=== PATIENT | female | born 1955 ===

== ENCOUNTER 2017-02-04 23:19 | Inpatient (IN) | payer MEDICAID ==
[2017-02-04 23:19] VITALS: BMI 33.2
--- NOTE | 2017-02-04 23:43 | C.PDOC ---
History Of Present Illness 61F c/o constant right sided abd pain for the last 3 days. improved somewhat w motrin. no exac fx. +n/v x3. no diarrhea or dysuria. hx of diverticulitis but says this feels different. Time Seen by Provider: 02/04/17 23:35 Chief Complaint (Nursing): Abdominal Pain Past Medical History Vital Signs: Last Vital Signs Temp 97.7 F 02/04/17 23:23 Pulse 85 02/04/17 23:23 Resp 16 02/04/17 23:23 BP 124/85 02/04/17 23:23 Pulse Ox 98 02/05/17 01:59 - Medical History PMH: Diverticulitis (2 years ago), Fractures (right patella hardware), HTN, Hypothyroidism, Chronic Kidney Disease (renal mass) - [facility] Procedures EXCISION OF DESCENDING COLON, ENDO, DIAGN (06/06/16) Family History: States: Other Other Family History: nc - Social History Hx Alcohol Use: No Hx Substance Use: No - Immunization History Hx Tetanus Toxoid Vaccination: Yes Hx Influenza Vaccination: No Hx Pneumococcal Vaccination: No Review Of Systems Except As Marked, All Systems Reviewed And Found Negative. Constitutional: Negative for: Fever, Chills Cardiovascular: Negative for: Chest Pain Respiratory: Negative for: Cough, Shortness of Breath Gastrointestinal: Positive for: Nausea, Vomiting, Abdominal Pain. Negative for : Diarrhea, Melena, Hematochezia Genitourinary: Negative for: Dysuria, Frequency Physical Exam - Physical Exam Appears: Well, Non-toxic, No Acute Distress Skin: Warm, Dry Head: Atraumatic Eye(s): bilateral: PERRL Oral Mucosa: Moist Lips: No Swelling Neck: Normal ROM Cardiovascular: Rhythm Regular Respiratory: No Decreased Breath Sounds, No Accessory Muscle Use, No Rales, No Rhonchi, No Wheezing Gastrointestinal/Abdominal: Soft, Tenderness (diffuse mainly LLQ), No Distention , No Guarding, No Rebound Extremity: No Swelling Neurological/Psych: Oriented x3, Other (no focla deficits) ED Course And Treatment - Laboratory Results Result Diagrams: 02/04/17 23:52 02/04/17 23:52 O2 Sat by Pulse Oximetry: 98 Medical Decision Making Medical Decision Making: EXAM: CT Abdomen and Pelvis With Intravenous Contrast CLINICAL HISTORY: 61 years old, female; Pain; Abdominal pain; Generalized TECHNIQUE: Axial computed tomography images of the abdomen and pelvis with intravenous contrast. This CT exam was performed using one or more of the following dose reduction techniques : automated exposure control, adjustment of the mA and/or kV according to patient size, and/ or use of iterative reconstruction technique. Coronal and sagittal reformatted images were created and reviewed. CONTRAST: 100 mL of VISIPAQUE administered intravenously. EXAM DATE/TIME: 02/04/2017 11:47 PM COMPARISON: CT - ABD PELVIS PO IV CON 11/14/2016 12:11:38 PM FINDINGS: Lower thorax: Heart size is normal. There is minimal atelectasis at the lung bases ABDOMEN: Liver: There is fatty infiltration of the liver. Gallbladder and bile ducts: Gallbladder is distended. There may be stones in the gallbladder. Pancreas: Pancreas is mildly atrophic. Spleen: Spleen is unremarkable. Adrenals: unremarkable Kidneys and ureters: There is a 1.2 cm right upper pole renal lesion not a simple cyst by CT criteria. Left kidney is unremarkable. There is no pelvocaliectasis or ureterectasis. Stomach and bowel: Stomach is almost empty. Rotation is normal. There are distended small bowel loops in the left lower quadrant with air-fluid levels. There is no obstruction. Terminal ileum is unremarkable.Appendix is not visualized.There is no pericecal inflammation. There is scattered diverticulosis Appendix: See stomach and bowel PELVIS: Bladder: unremarkable Reproductive: Uterus is absent. There are no adnexal masses. ABDOMEN and PELVIS: Intraperitoneal space: There is no significant fluid. There is no free air. Bones/joints: There are postsurgical changes of spinal fusion L5/S1. There is a cage in the L5-S1 disc space. There is mild compression deformity of L4. There is compression fracture of T11. Soft tissues: There granulomas in the left buttock Vasculature: Vascular structures are unremarkable. Lymph nodes: unremarkable IMPRESSION: Ileus, no obstruction; diverticulosis without CT findings of diverticulitis; fatty liver; 1.2 cm low attenuation right renal mass, unchanged Additional findings as described above Disposition - Disposition Disposition: HOSPITALIZED Disposition Time: 02:19 Condition: STABLE - Clinical Impression Clinical Impression: Abdominal pain, Vomiting, Nausea
[2017-02-04] MEDS ORDERED: Sodium Chloride 0.9% 1,000 ML IV ONE (23:48)
[2017-02-04 23:55] LABS: BASO % 1.2 % (0.0-2.0); EOS % 0.3 % (0.0-4.0); HEMATOCRIT 44.3 % (34.0-47.0); LYMPH # 1.3 K/uL (1.0-4.3); LYMPH % 41.7 % (20.0-40.0); MEAN CELL VOLUME 89.7 fL (81.0-99.0); MEAN CORPUSCULAR HEMOGLOBIN 30.3 pg (27.0-31.0); MEAN CORPUSCULAR HGB CONC 33.8 g/dL (33.0-37.0); MEAN PLATELET VOLUME 9.2 fL (7.2-11.7); MONO # 0.5 K/uL (0.0-0.8); NRBC % 0.1 % (0.0-2.0); RED CELL DISTRIBUTION WIDTH 13.5 % (11.5-14.5)
[2017-02-04] MEDS ORDERED: Sodium Chloride 0.9% 1,000 ML ONE (23:56)
[2017-02-05 00:03] LABS: CHLORIDE 96 mmol/L (98-107); SODIUM 137 mmol/L (132-148)
[2017-02-05 00:05] LABS: BILIRUBIN,TOTAL 1.1 mg/dL (0.2-1.3); CARBON DIOXIDE 30 mmol/L (22-30); GFR AFRICAN-AMERICAN > 60
[2017-02-05 00:06] LABS: ALB/GLOB RATIO 1.2 (1.0-2.1); ALKALINE PHOSPHATASE 51 U/L (38-126); ALT/SGPT 35 U/L (9-52); AST/SGOT 47 U/L (14-36); BLOOD UREA NITROGEN 16 mg/dL (7-17); CALCIUM 8.6 mg/dl (8.6-10.4); GLUCOSE,RANDOM 102 mg/dL (65-105); TOTAL PROTEIN 7.9 g/dL (6.3-8.3)
[2017-02-05 00:13] LABS: POTASSIUM 4.9 mmol/L (3.6-5.2)
[2017-02-05 00:19] LABS: RBC URINE 3 /hpf (0-3); URINE BACTERIA MANY (<OCC); URINE BILIRUBIN NEGATIVE (NEGATIVE); URINE BLOOD NEGATIVE (NEGATIVE); URINE COLOR Yellow (YELLOW); URINE GLUCOSE (UA) NORMAL (Normal); URINE KETONE 1+ mg/dL (NEGATIVE); URINE LEUKOCYTE ESTERASE NEG Leu/uL (Negative); URINE PROTEIN NEGATIVE (NEGATIVE); URINE UROBILINOGEN NORMAL mg/dL (0.2-1.0); WBC URINE 4 /hpf (0-5)
[2017-02-05] MEDS ORDERED: Iodixanol 320 MG/ML 100 ML BOTTLE IV ONE (00:32)
--- NOTE | 2017-02-05 01:58 | CT ---
EXAM: CT Abdomen and Pelvis With Intravenous Contrast CLINICAL HISTORY: 61 years old, female; Pain; Abdominal pain; Generalized TECHNIQUE: Axial computed tomography images of the abdomen and pelvis with intravenous contrast. This CT exam was performed using one or more of the following dose reduction techniques: automated exposure control, adjustment of the mA and/or kV according to patient size, and/or use of iterative reconstruction technique. Coronal and sagittal reformatted images were created and reviewed. CONTRAST: 100 mL of VISIPAQUE administered intravenously. EXAM DATE/TIME: 02/04/2017 11:47 PM COMPARISON: CT - ABD PELVIS PO IV CON 11/14/2016 12:11:38 PM FINDINGS: Lower thorax: Heart size is normal. There is minimal atelectasis at the lung bases ABDOMEN: Liver: There is fatty infiltration of the liver. Gallbladder and bile ducts: Gallbladder is distended. There may be stones in the gallbladder. Pancreas: Pancreas is mildly atrophic. Spleen: Spleen is unremarkable. Adrenals: unremarkable Kidneys and ureters: There is a 1.2 cm right upper pole renal lesion not a simple cyst by CT criteria. Left kidney is unremarkable. There is no pelvocaliectasis or ureterectasis. Stomach and bowel: Stomach is almost empty. Rotation is normal. There are distended small bowel loops in the left lower quadrant with air-fluid levels. There is no obstruction. Terminal ileum is unremarkable.Appendix is not visualized.There is no pericecal inflammation. There is scattered diverticulosis Appendix: See stomach and bowel PELVIS: Bladder: unremarkable Reproductive: Uterus is absent. There are no adnexal masses. ABDOMEN and PELVIS: Intraperitoneal space: There is no significant fluid. There is no free air. Bones/joints: There are postsurgical changes of spinal fusion L5/S1. There is a cage in the L5-S1 disc space. There is mild compression deformity of L4. There is compression fracture of T11. Soft tissues: There granulomas in the left buttock Vasculature: Vascular structures are unremarkable. Lymph nodes: unremarkable IMPRESSION: Ileus, no obstruction; diverticulosis without CT findings of diverticulitis; fatty liver; 1.2 cm low attenuation right renal mass, unchanged Additional findings as described above.
[2017-02-05] MEDS ORDERED: DiphenhydrAMINE 50 mg/ml Inj IVP STA (02:21)
[2017-02-05] MEDS ORDERED: Sodium Chloride 0.9% 1,000 ML ONE (02:25)
[2017-02-05] MEDS ORDERED: DiphenhydrAMINE 50 mg/ml Inj ONE (02:25)
[2017-02-05] MEDS: Sodium Chloride 0.9% 1,000 ML IV SCH (02:29)
[2017-02-05] MEDS ORDERED: Dextrose 5%/0.9% NS 1,000 ML IV ONE (04:20)
[2017-02-05] MEDS: Dextrose 5%/0.9% NS 1,000 ML IV SCH ×2 (04:21→18:01)
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
[2017-02-05] MEDS: Levothyroxine 50 MCG TAB PO SCH (10:57)
[2017-02-05] MEDS: Enoxaparin 40 mg Syringe SC SCH (10:57)
--- NOTE | 2017-02-05 11:11 | NM ---
PROCEDURE: Nuclear Medicine Hepatobiliary Scan HISTORY: biliary colic COMPARISON: February 05, 2017. CT abdomen and pelvis TECHNIQUE: 5.1 mCi of technetium 99m Mebrofenin was administered intravenously. Planar images of the abdomen were obtained at 5 min intervals to 60 mins. Delayed images were also obtained. FINDINGS: LIVER: Timely and homogenous uptake. COMMON BILE DUCT: identified at 10 mins. GALLBLADDER: identified at 25 mins. SMALL BOWEL: Identified at 15 mins. IMPRESSION: Normal Hepatobiliary Scan. The cystic duct is patent.
[2017-02-05 14:57] LABS: CARCINOEMBRYONIC ANTIGEN 1.3 ng/mL (0-3.0)
[2017-02-05 15:01] LABS: CA 19-9 5.4 U/mL (0-37)
--- NOTE | 2017-02-05 15:49 | CON ---
DATE: 02/05/[address] Les Plummer to Dr. Canelo Matias. I was called for GI consultation by the admitting medical team as well as ER staff. The patient is s een and fully examined on 02/05/2017. Case discussed with the staff at length on the floor. This is a 61-year-old female who was admitted to the hospital through the Emergency Room with a main complaint of severe persistent mid epigastric and right upper quadrant pain, radiates to the right fl ank area as well as the right shoulder area for the last 3-4 days prior to her admission with episode s of nausea and vomiting with dyspepsia, but no chills or fever. No active bleeding. No reported shortness of breath or chest pain or palpitation. PAST MEDICAL HISTORY: 1. Diverticulosis with episodes of diverticulitis. 2. Hypertension. 3. Renal mass lesion diagnosed before. 4. Known history of hypothyroidism. 5. Right patellar fracture before. The patient's last colonoscopy apparently done 05/19/2016, details are not available right now. FAMILY HISTORY: Unrelated to specific GI disorders. SOCIAL HISTORY: No known history of cigarette smoking or alcohol intake. CURRENT MEDICATIONS: Lists were reviewed. ALLERGY TO MEDICATION: Unclear. After being admitted to the hospital, the patient was found to have normal hemoglobin and hematocrit with low white cells to 3.0 and normal SMA-7. Abdominal and pelvic CAT scan, report is seen with an ileus, but no evidence of obstruction with evid ence of diverticulosis, but no diverticulitis, with right renal mass, unchanged. PHYSICAL EXAMINATION: GENERAL: A 61-year-old female, awake, alert, oriented, complaining of right-sided abdominal pain. HEENT: Showed dry oral mucoid membrane. Nonicteric sclerae. LUNGS: Few scattered crepitation. Decreased air entry at bases. HEART: Positive S1 and S2. LYMPH NODES: No lymphadenitis or lymphadenopathy. VITAL SIGNS: The patient is afebrile with pulse of 82, respiratory rate 20-22 with blood pressure 13 0/82. EXTREMITIES: Without significant edema, clubbing or cyanosis. NEUROLOGIC: No reported new neurological deficit, sensory or motor. It has to be mentioned that the abdominal x-ray showed mid epigastric as well as right upper quadrant tenderness. Bowel sounds are hypoactive. No mass or organomegaly. IMPRESSION: 1. To rule out cholelithiasis with early stage of cholecystitis. 2. Right renal mass of unclear etiology. 3. Known history of diverticulosis. 4. Known history of hypertension, hyperlipidemia. SUGGESTION: 1. Continue current management. 2. IV antibiotics. 3. MRCP. 4. Surgical evaluation with urology consultation due to the renal mass. 5. Further evaluation to follow. Les Plummer MD cc: 14 TT: 02/05/2017 15:49:14 Confirmation # [id number] Dictation # [id number]
--- NOTE | 2017-02-05 23:06 | CP.PCM.HP ---
History of Present Illness - History of Present Illness History of Present Illness: CC: abdominal pain HPI: Patient is a 61 year old female, with PMHx of diverticulitis, hypertension, osteoarthritis, renal mass, and cataracts who presents to [facility] ED for abdominal pain. She states pain began 4 days ago, while she was visiting family in [place]. She initially thought it was caused by food she ate , but it did not improve. She describes the pain as "constant, sharp pain," located in "her lower abdomen," that is 8/10 on the severity scale now, but 10/ 10 at the worst, that does not radiate. The abdomen pain has been associated with subjective fever for the "last two days," but denies taking temperature. She saw me and was given prescription for Reglan with no relief. She states Motrin improves pain "a little" but it is short-lived. Pain was associated with two episodes of vomiting yesterday. She admits passing gas and small bowel movement this AM. She denies chest pain, diarrhea, sick contacts. Admits recent flight on Present on Admission - Present on Admission Any Indicators Present on Admission: No Review of Systems - Review of Systems Systems not reviewed;Unavailable: Acuity of Condition - Constitutional Constitutional: Fatigue, Lethargy, Malaise - EENT Eyes: absent: As Per HPI, Blind Spots, Blurred Vision, Change in Vision, Decreased Night Vision, Diplopia, Discharge, Dry Eye, Exophthalmos, Floaters, Irritation, Itchy Eyes, Loss of Peripheral Vision, Pain, Photophobia, Requires Corrective Lenses, Sees Flashes, Spots in Vision, Tunnel Vision, Other Visual Disturbances, Loss of Vision, Other Ears: absent: As Per HPI, Decreased Hearing, Ear Discharge, Ear Pain, Tinnitus, Abnormal Hearing, Disequilibrium, Dizziness, Other - Gastrointestinal Gastrointestinal: Abdominal Pain - Genitourinary Genitourinary: absent: As Per HPI, Change in Urinary Stream, Difficulty Urinating, Dysuria, Flank Pain, Hematuria, Pyuria, Nocturia, Urinary Incontinence, Urinary Frequency, Urinary Hesitance, Urinary Urgency, Voiding Freq/Small Amts, Freq UTI, Hx Renal/Bladder Calculi, Hx /Renal Surgery, Bladder Distension, Other - Musculoskeletal Musculoskeletal: Back Pain, Myalgias. absent: As Per HPI, Abnormal Gait, Arthralgias, Atrophy, Deformity, Joint Swelling, Limited Range of Motion, Loss of Height, Muscle Cramps, Muscle Weakness, Neck Pain, Numbness, Radiating Pain into Limb, Stiffness, Tingling, Other - Neurological Neurological: absent: As Per HPI, Abnormal Gait, Abnormal Hearing, Abnormal Movements, Abnormal Speech, Behavioral Changes, Burning Sensations, Confusion, Convulsions, Disequilibrium, Dizziness, Numbness, Focal Weakness, Frequent Falls , Headaches, Lack of Coordination, Loss of Vision, Memory Loss, Paresthesias, Radicular Pain, Restless Legs, Sensory Deficit, Syncope, Tingling, Tremor, Vertigo, Weakness, Other Visual Disturbances, Other - Psychiatric Psychiatric: absent: As Per HPI, Abnormal Sleep Pattern, Anhedonia, Anxiety, Auditory Hallucinations, Behavioral Changes, Change in Appetite, Change in Libido, Confusion, Depression, Difficulty Concentrating, Hallucinations, Homicidal Ideation, Hopelessness, Irritability, Memory Loss, Mood Swings, Panic Attacks, Paranoia, Suicidal Ideation, Visual Hallucinations, Tactile Hallucinations, Other Past Patient History - Past Medical History & Family History Past Medical History?: Yes - Past Social History Smoking Status: Never Smoked - CARDIAC Hx Hypertension: Yes - PULMONARY Hx Respiratory Disorders: No - NEUROLOGICAL Hx Neurological Disorder: No - HEENT Hx HEENT Problems: Yes Hx Cataracts: Yes (bilat iol) - RENAL Hx Chronic Kidney Disease: Yes (renal mass) - ENDOCRINE/METABOLIC Hx Hypothyroidism: Yes - HEMATOLOGICAL/ONCOLOGICAL Hx Blood Disorders: No - INTEGUMENTARY Hx Dermatological Problems: No - MUSCULOSKELETAL/RHEUMATOLOGICAL Hx Fractures: Yes (right patella hardware) - GASTROINTESTINAL Hx Diverticulitis: Yes (2 years ago) - GENITOURINARY/GYNECOLOGICAL Hx Genitourinary Disorders: No - PSYCHIATRIC Hx Substance Use: No - SURGICAL HISTORY Hx Surgeries: Yes Hx Section: Yes (x2) Hx Hysterectomy: Yes Hx Open Reduction Internal Fixation: Yes (jaw right knee spine) - ANESTHESIA Hx Anesthesia: Yes Hx Anesthesia Reactions: Yes (nausea vomitting swelling sob post colonoscopy) Hx Malignant Hyperthermia: No Meds Home Medications: Home Medication List Medication Instructions Recorded Confirmed Type Ciprofloxacin [Cipro] 500 mg PO BID #10 tab 02/09/17 Rx Dicyclomine [Bentyl] 10 mg PO TID #10 cap 02/09/17 Rx Metronidazole [Flagyl] 500 mg PO Q8 #15 tablet 02/09/17 Rx Allergies/Adverse Reactions: Allergies Allergy/AdvReac Type Severity Reaction Status Date / Time Anesthetics - Amide Type Allergy SHORTNESS Verified 02/04/17 23:26 OF BREATH seafood AdvReac Uncoded 02/05/17 01:51 Results - Vital Signs Recent Vital Signs: Last Vital Signs Temp 98.7 F 02/05/17 17:29 Pulse 61 02/05/17 17:29 Resp 20 02/05/17 17:29 BP 121/78 02/05/17 17:29 Pulse Ox 96 02/05/17 17:29 - Labs Result Diagrams: 02/09/17 13:57 02/09/17 13:57 Labs: Laboratory Results - last 24 hr 02/05/17 13:52 Carcinoembryonic Ag 1.3 CA 19-9 Antigen 5.4 CA 125 Antigen < 5.5 Assessment & Plan (1) Abdominal pain Assessment and Plan: Assessment: 61 yo F with abdominal pain, N/V x [address] shows ileus w/o obstruction. HIDA negative Plan: NPO diet Continue IVF Started Zosyn 3.375g q8H f/u obstructive series in AM HIDA scan: negative (wet read, f/u official report) f/u GI reccs f/u CBC in AM, if WBC remains low recommend Hem/Onc consult Status: Acute (2) Nausea Status: Acute (3) Vomiting Status: Acute
[2017-02-06] MEDS: Piperacillin/Tazobact 3.375 GM in Sodium Chloride 100 ML IVPB SCH ×2 (01:00→10:17)
[2017-02-06] MEDS: Dextrose 5%/0.9% NS 1,000 ML IV SCH ×2 (04:30→17:45)
[2017-02-06] MEDS: Levothyroxine 50 MCG TAB PO SCH (05:42)
[2017-02-06 07:52] LABS: BASO % 0.7 % (0.0-2.0); EOS % 1.3 % (0.0-4.0); HEMATOCRIT 38.4 % (34.0-47.0); LYMPH # 1.3 K/uL (1.0-4.3); LYMPH % 48.7 % (20.0-40.0); MEAN CELL VOLUME 89.8 fL (81.0-99.0); MEAN CORPUSCULAR HEMOGLOBIN 29.7 pg (27.0-31.0); MONO # 0.3 K/uL (0.0-0.8); MONO % 12.5 % (0.0-10.0); NRBC % 0.4 % (0.0-2.0); RED CELL DISTRIBUTION WIDTH 13.2 % (11.5-14.5)
[2017-02-06 07:54] LABS: WHITE BLOOD COUNT 2.6 K/uL (4.8-10.8)
[2017-02-06 08:17] LABS: CHLORIDE 103 mmol/L (98-107); SODIUM 139 mmol/L (132-148)
[2017-02-06 08:19] LABS: GFR AFRICAN-AMERICAN > 60
[2017-02-06 08:20] LABS: ALB/GLOB RATIO 1.1 (1.0-2.1); ALKALINE PHOSPHATASE 45 U/L (38-126); ALT/SGPT 26 U/L (9-52); AST/SGOT 26 U/L (14-36); BILIRUBIN,TOTAL 0.5 mg/dL (0.2-1.3); BLOOD UREA NITROGEN 11 mg/dL (7-17); CALCIUM 7.5 mg/dl (8.6-10.4); CARBON DIOXIDE 28 mmol/L (22-30); GLUCOSE,RANDOM 90 mg/dL (65-105); TOTAL PROTEIN 5.8 g/dL (6.3-8.3)
--- NOTE | 2017-02-06 09:02 | CP.PCM.PN ---
<Byron Flores - Last Filed: 02/06/17 11:04> Subjective - Date & Time of Evaluation Date of Evaluation: 02/06/17 Time of Evaluation: 08:51 - Subjective Subjective: PGY-1 note for surgery, Dr. Ibrahim Pt S&E at bedside. She reports continued pain in her lower abdomen, that she rates as 5/10 on the severity scale at worst. She reports pain is well controlled after pain medication given. She admits passing gas but denies bowel movement for the past two days. She denies nausea or vomiting. Objective - Vital Signs/Intake and Output Vital Signs (last 24 hours): Temp Pulse Resp BP Pulse Ox 98.2 F 71 20 119/86 95 02/06/17 08:11 02/06/17 08:11 02/06/17 08:11 02/06/17 08:11 02/06/17 08:11 - Medications Medications: Current Medications Enoxaparin Sodium (Lovenox) 40 mg SC DAILY [facility] Last Admin: 02/05/17 10:57 Dose: 40 mg Gabapentin (Neurontin) 300 mg PO HS [facility] Last Admin: 02/05/17 21:41 Dose: 300 mg Sodium Chloride (Sodium Chloride 0.9%) 1,000 mls @ 100 mls/hr IV .Q10H [facility] Last Admin: 02/05/17 02:29 Dose: 100 mls/hr Dextrose/Sodium Chloride (Dextrose 5%/0.9% Ns 1000 Ml) 1,000 mls @ 80 mls/hr IV .[id number] [facility] Last Admin: 02/06/17 04:30 Dose: Not Given Piperacillin Sod/Tazobactam (Sod 3.375 gm/ Sodium Chloride) 100 mls @ 200 mls/ hr IVPB Q8H [facility] Last Admin: 02/06/17 01:00 Dose: 200 mls/hr Ketorolac Tromethamine (Toradol) 15 mg IVP Q6 PRN PRN Reason: Pain, moderate (4-7) Last Admin: 02/05/17 18:00 Dose: 15 mg Levothyroxine Sodium (Synthroid) 50 mcg PO DAILY@0630 [facility] Last Admin: 02/06/17 05:42 Dose: 50 mcg Losartan Potassium (Cozaar) 25 mg PO DAILY [facility] Last Admin: 02/05/17 10:57 Dose: 25 mg Ondansetron HCl (Zofran Inj) 4 mg IVP Q4 PRN PRN Reason: Nausea/Vomiting Last Admin: 02/05/17 18:40 Dose: 4 mg Pantoprazole Sodium (Protonix Inj) 40 mg IVP DAILY [facility] Last Admin: 02/05/17 10:57 Dose: 40 mg Tramadol HCl (Ultram) 50 mg PO TID PRN PRN Reason: Pain, moderate (4-7) - Labs Labs: 02/06/17 07:38 02/06/17 07:38 - Constitutional Appears: Non-toxic, No Acute Distress - Head Exam Head Exam: ATRAUMATIC, NORMOCEPHALIC - Eye Exam Eye Exam: EOMI Pupil Exam: PERRL - ENT Exam ENT Exam: Mucous Membranes Moist - Respiratory Exam Respiratory Exam: Clear to Ausculation Bilateral, NORMAL BREATHING PATTERN - Cardiovascular Exam Cardiovascular Exam: REGULAR RHYTHM, +S1, +S2 - GI/Abdominal Exam GI & Abdominal Exam: Soft, Tenderness (diffuse, worst in LLQ), Normal Bowel Sounds - Extremities Exam Extremities Exam: Normal Inspection - Back Exam Back Exam: absent: CVA tenderness (L), CVA tenderness (R) - Neurological Exam Neurological Exam: Alert, Awake, Oriented x3 - Psychiatric Exam Psychiatric exam: Normal Affect, Normal Mood - Skin Skin Exam: Dry, Normal Color, Warm Assessment and Plan - Assessment and Plan (Free Text) Assessment: 61 yo F with abdominal pain, N/V x [address] shows ileus w/o obstruction. HIDA negative Plan: ADAT Continue IVF Continue Zosyn 3.375g q8H f/u AM obstructive series HIDA scan: negative GI reccs: MRCP WBC remains low, but in line with previous admissions <Tuan Ibrahim - Last Filed: 02/06/17 21:52> Objective - Vital Signs/Intake and Output Vital Signs (last 24 hours): Temp Pulse Resp BP Pulse Ox 98.7 F 66 20 107/71 95 02/06/17 16:00 02/06/17 16:00 02/06/17 16:00 02/06/17 16:00 02/06/17 16:00 - Medications Medications: Current Medications Acetaminophen (Tylenol 325mg Tab) 650 mg PO Q6 PRN PRN Reason: Headache Enoxaparin Sodium (Lovenox) 40 mg SC DAILY [facility] Last Admin: 02/06/17 10:17 Dose: 40 mg Folic Acid (Folic Acid) 1 mg PO DAILY [facility] Last Admin: 02/06/17 12:49 Dose: 1 mg Gabapentin (Neurontin) 300 mg PO HS [facility] Last Admin: 02/06/17 21:23 Dose: 300 mg Dextrose/Sodium Chloride (Dextrose 5%/0.9% Ns 1000 Ml) 1,000 mls @ 80 mls/hr IV .[id number] [facility] Last Admin: 02/06/17 17:45 Dose: 80 mls/hr Piperacillin Sod/Tazobactam (Sod 3.375 gm/ Sodium Chloride) 100 mls @ 200 mls/ hr IVPB Q8H [facility] Last Admin: 02/06/17 17:44 Dose: 200 mls/hr Ketorolac Tromethamine (Toradol) 15 mg IVP Q6 PRN PRN Reason: Pain, moderate (4-7) Levothyroxine Sodium (Synthroid) 50 mcg PO DAILY@0630 [facility] Last Admin: 02/06/17 05:42 Dose: 50 mcg Losartan Potassium (Cozaar) 25 mg PO DAILY [facility] Last Admin: 02/06/17 10:17 Dose: 25 mg Ondansetron HCl (Zofran Inj) 4 mg IVP Q4 PRN PRN Reason: Nausea/Vomiting Last Admin: 02/06/17 17:48 Dose: 4 mg Pantoprazole Sodium (Protonix Inj) 40 mg IVP DAILY [facility] Last Admin: 02/06/17 10:17 Dose: 40 mg Tramadol HCl (Ultram) 50 mg PO TID PRN PRN Reason: Pain, moderate (4-7) Attending/Attestation - Attestation I have personally seen and examined this patient.: Yes I have fully participated in the care of the patient.: Yes I have reviewed all pertinent clinical information, including history, physical exam and plan: Yes Notes (Text): 02/06/17 21:51 Pt was seen and examined at bedside on 02/06/17 Agree with above note and assessment Pt with Ileus due to Possible Diverticulitis or Adhesions C.w IV antibiotics AXR in am Plan d.w pt in detail
[2017-02-06] MEDS: Enoxaparin 40 mg Syringe SC SCH (10:17)
[2017-02-06] MEDS: Sodium Chloride 0.9% 1,000 ML IV SCH (10:17)
--- NOTE | 2017-02-06 11:16 | PN ---
DATE: 02/06/2017 LOCATION: 560, bed B. This is a 61-year-old female seen and examined at rounds with intermittent periods of abdominal pain. The entire chart is reviewed including, but not limited to the most recent lab and radiology study results, current and the previous medication lists, current and the previous medical events, case dis cussed with the staff at length and the patient still has lower abdominal pain, but no bowel movement reported for today yet. Today's labs showed low white blood cells, but normal hemoglobin and hematocrit with low calcium and low albumin 3.2. Biliary scan was reported to be normal and again, abdominal and pelvic CAT scan rep ort seen, mainly related to right renal mass. PHYSICAL EXAMINATION: GENERAL: A 61-year-old female, awake, alert. VITAL SIGNS: Afebrile with pulse of 74, respiratory rate 20-22, blood pressure of 116/78. HEENT: Showed pale, dry oral mucoid membrane. Nonicteric sclerae. LUNGS: Few scattered crepitation, decreased air entry at bases. HEART: Positive S1 and S2. ABDOMEN: Soft with mild generalized tenderness, but mainly in the right side area. No mass or organ omegaly. No rebound tenderness or guarding. RECTAL: Positive tone. Vault is empty. EXTREMITIES: Without significant edema, clubbing or cyanosis. NEUROLOGIC: No new neurological deficits, sensory or motor. IMPRESSION: 1. Abdominal pain with change of bowel movement of unclear etiology. 2. Change of bowel movement with possible fecal impaction. 3. Right renal mass of unclear etiology. SUGGESTION: 1. Agree with your plan. 2. Surgical reevaluation. 3. The patient may need colonoscopy if her symptoms persist. 4. Follow up on cancer markers. Les Plummer MD cc: 14 TT: 02/06/2017 11:15:34 Confirmation # [id number] Dictation # [id number] tn
[2017-02-06] MEDS: Piperacillin/Tazobact 3.375 GM in Sodium Chloride 0.9% 100 ML IVPB SCH (17:44)
--- NOTE | 2017-02-06 20:57 | RAD ---
Abdomen two views History: Ileus. Comparison: CT scan dated 02/05/2017 Findings: No focal infiltrate or effusion. Bilateral hilar prominence. Tortuous aorta. Mild cardiomegaly. Degenerative changes in the spine. Moderate fecal retention in the colon. Relative paucity of small bowel gas. Postsurgical changes in the lower lumbar spine. Impression: Nonspecific bowel gas pattern with moderate fecal retention in the colon. Relative paucity of small bowel gas.
[2017-02-07] MEDS: Piperacillin/Tazobact 3.375 GM in Sodium Chloride 0.9% 100 ML IVPB SCH ×3 (00:53→18:54)
[2017-02-07] MEDS: Levothyroxine 50 MCG TAB PO SCH (06:10)
[2017-02-07] MEDS: Dextrose 5%/0.9% NS 1,000 ML IV SCH ×2 (09:35→19:01)
[2017-02-07] MEDS: Enoxaparin 40 mg Syringe SC SCH (09:51)
--- NOTE | 2017-02-07 11:08 | CP.PCM.PN ---
<CaitByron cortes - Last Filed: 02/07/17 10:57> Subjective - Date & Time of Evaluation Date of Evaluation: 02/07/17 Time of Evaluation: 10:58 - Subjective Subjective: PGY-1 note for Gen Surgery, Dr. Ibrahim Pt S&E at bedside. Pt reporting abdominal pain is much improved since admission , rating it a 1-2/10 on the severity scale. The pain is located now in LLQ, without radiation. She admits passing gas, but denies bowel movement for two days. She is tolerating diet without difficulty, and requesting to go home. Objective - Vital Signs/Intake and Output Vital Signs (last 24 hours): Temp Pulse Resp BP Pulse Ox 98.1 F 59 L 18 117/82 96 02/07/17 08:25 02/07/17 08:25 02/07/17 08:25 02/07/17 08:25 02/07/17 08:25 Intake and Output: 02/07/17 02/07/17 06:59 18:59 Intake Total 1280 Balance 1280 - Medications Medications: Current Medications Acetaminophen (Tylenol 325mg Tab) 650 mg PO Q6 PRN PRN Reason: Headache Last Admin: 02/07/17 09:33 Dose: 650 mg Enoxaparin Sodium (Lovenox) 40 mg SC DAILY [facility] Last Admin: 02/07/17 09:51 Dose: 40 mg Folic Acid (Folic Acid) 1 mg PO DAILY [facility] Last Admin: 02/07/17 09:50 Dose: 1 mg Gabapentin (Neurontin) 300 mg PO HS [facility] Last Admin: 02/06/17 21:23 Dose: 300 mg Dextrose/Sodium Chloride (Dextrose 5%/0.9% Ns 1000 Ml) 1,000 mls @ 80 mls/hr IV .[id number] [facility] Last Admin: 02/07/17 09:35 Dose: 80 mls/hr Piperacillin Sod/Tazobactam (Sod 3.375 gm/ Sodium Chloride) 100 mls @ 200 mls/ hr IVPB Q8H [facility] Last Admin: 02/07/17 09:57 Dose: 200 mls/hr Ketorolac Tromethamine (Toradol) 15 mg IVP Q6 PRN PRN Reason: Pain, moderate (4-7) Levothyroxine Sodium (Synthroid) 50 mcg PO DAILY@0630 [facility] Last Admin: 02/07/17 06:10 Dose: 50 mcg Losartan Potassium (Cozaar) 25 mg PO DAILY [facility] Last Admin: 02/07/17 09:50 Dose: 25 mg Ondansetron HCl (Zofran Inj) 4 mg IVP Q4 PRN PRN Reason: Nausea/Vomiting Last Admin: 02/06/17 17:48 Dose: 4 mg Pantoprazole Sodium (Protonix Inj) 40 mg IVP DAILY [facility] Last Admin: 02/07/17 09:50 Dose: 40 mg Tramadol HCl (Ultram) 50 mg PO TID PRN PRN Reason: Pain, moderate (4-7) - Constitutional Appears: Non-toxic, No Acute Distress - Head Exam Head Exam: ATRAUMATIC, NORMOCEPHALIC - Eye Exam Eye Exam: EOMI Pupil Exam: PERRL - ENT Exam ENT Exam: Mucous Membranes Moist - Respiratory Exam Respiratory Exam: Clear to Ausculation Bilateral, NORMAL BREATHING PATTERN - Cardiovascular Exam Cardiovascular Exam: REGULAR RHYTHM, +S1, +S2 - GI/Abdominal Exam GI & Abdominal Exam: Soft, Tenderness (minimal tenderness in LLQ), Normal Bowel Sounds - Back Exam Back Exam: NORMAL INSPECTION. absent: tenderness - Neurological Exam Neurological Exam: Alert, Awake, Oriented x3 - Psychiatric Exam Psychiatric exam: Normal Affect, Normal Mood - Skin Skin Exam: Dry, Normal Color, Warm Assessment and Plan - Assessment and Plan (Free Text) Assessment: 61 yo F with abdominal pain, N/V x [address] shows ileus w/o obstruction. HIDA negative. Obst series Plan: Per Dr. Ibrahim, surgical attending: - pt stable for discharge per surgery - 7 day outpatient course of Cipro/Flagyl PO - f/u in his office in one week's time - f/u GI reccs D.W Dr. Patrice Flores, PGY-1 <Tuan Ibrahim - Last Filed: 02/07/17 14:08> Objective - Vital Signs/Intake and Output Vital Signs (last 24 hours): Temp Pulse Resp BP Pulse Ox 98.1 F 59 L 18 117/82 96 02/07/17 08:25 02/07/17 08:25 02/07/17 08:25 02/07/17 08:25 02/07/17 08:25 Intake and Output: 02/07/17 02/07/17 06:59 18:59 Intake Total 1280 Balance 1280 - Medications Medications: Current Medications Acetaminophen (Tylenol 325mg Tab) 650 mg PO Q6 PRN PRN Reason: Headache Last Admin: 02/07/17 09:33 Dose: 650 mg Bisacodyl (Dulcolax) 10 mg PO ONCE ONE Stop: 02/07/17 17:01 Docusate Sodium (Colace) 100 mg PO BID [facility] Last Admin: 02/07/17 12:52 Dose: 100 mg Enoxaparin Sodium (Lovenox) 40 mg SC DAILY [facility] Last Admin: 02/07/17 09:51 Dose: 40 mg Folic Acid (Folic Acid) 1 mg PO DAILY [facility] Last Admin: 02/07/17 09:50 Dose: 1 mg Gabapentin (Neurontin) 300 mg PO HS [facility] Last Admin: 02/06/17 21:23 Dose: 300 mg Dextrose/Sodium Chloride (Dextrose 5%/0.9% Ns 1000 Ml) 1,000 mls @ 80 mls/hr IV .[id number] [facility] Last Admin: 02/07/17 09:35 Dose: 80 mls/hr Piperacillin Sod/Tazobactam (Sod 3.375 gm/ Sodium Chloride) 100 mls @ 200 mls/ hr IVPB Q8H [facility] Last Admin: 02/07/17 09:57 Dose: 200 mls/hr Ketorolac Tromethamine (Toradol) 15 mg IVP Q6 PRN PRN Reason: Pain, moderate (4-7) Levothyroxine Sodium (Synthroid) 50 mcg PO DAILY@0630 [facility] Last Admin: 02/07/17 06:10 Dose: 50 mcg Losartan Potassium (Cozaar) 25 mg PO DAILY [facility] Last Admin: 02/07/17 09:50 Dose: 25 mg Metoclopramide HCl (Reglan) 5 mg IVP ACHS [facility] Ondansetron HCl (Zofran Inj) 4 mg IVP Q4 PRN PRN Reason: Nausea/Vomiting Last Admin: 02/06/17 17:48 Dose: 4 mg Pantoprazole Sodium (Protonix Inj) 40 mg IVP DAILY [facility] Last Admin: 02/07/17 09:50 Dose: 40 mg Tramadol HCl (Ultram) 50 mg PO TID PRN PRN Reason: Pain, moderate (4-7) Attending/Attestation - Attestation I have personally seen and examined this patient.: Yes I have fully participated in the care of the patient.: Yes I have reviewed all pertinent clinical information, including history, physical exam and plan: Yes Notes (Text): 02/07/17 14:02 Pt was seen and examined at bedside on 02/07/17 Agree with above note and assessment Pt can be DC home Po cipro and flagyl for 7 days Plan d.w pt and primary team.
[2017-02-07] MEDS ORDERED: Pneumococcal 23-Valent Vaccine IM ONE (12:00)
--- NOTE | 2017-02-07 13:13 | CP.PCM.PN ---
Subjective - Date & Time of Evaluation Date of Evaluation: 02/06/17 Time of Evaluation: 09:42 - Subjective Subjective: Pt S&E at bedside. continues to have abdominal pain, pt also seen by surgery, seems to have segmental paralytic ileus. Pt reporting abdominal pain is much improved since admission, rating it a 1-2/10 on the severity scale. The pain is located now in LLQ, without radiation. She admits passing gas, but denies bowel movement for two days. She is tolerating diet without difficulty Objective - Vital Signs/Intake and Output Vital Signs (last 24 hours): Temp Pulse Resp BP Pulse Ox 98.1 F 59 L 18 117/82 96 02/07/17 08:25 02/07/17 08:25 02/07/17 08:25 02/07/17 08:25 02/07/17 08:25 Intake and Output: 02/07/17 02/07/17 06:59 18:59 Intake Total 1280 Balance 1280 - Medications Medications: Current Medications Acetaminophen (Tylenol 325mg Tab) 650 mg PO Q6 PRN PRN Reason: Headache Last Admin: 02/07/17 09:33 Dose: 650 mg Bisacodyl (Dulcolax) 10 mg PO ONCE ONE Stop: 02/07/17 17:01 Docusate Sodium (Colace) 100 mg PO BID [facility] Last Admin: 02/07/17 12:52 Dose: 100 mg Enoxaparin Sodium (Lovenox) 40 mg SC DAILY [facility] Last Admin: 02/07/17 09:51 Dose: 40 mg Folic Acid (Folic Acid) 1 mg PO DAILY [facility] Last Admin: 02/07/17 09:50 Dose: 1 mg Gabapentin (Neurontin) 300 mg PO HS [facility] Last Admin: 02/06/17 21:23 Dose: 300 mg Dextrose/Sodium Chloride (Dextrose 5%/0.9% Ns 1000 Ml) 1,000 mls @ 80 mls/hr IV .[id number] [facility] Last Admin: 02/07/17 09:35 Dose: 80 mls/hr Piperacillin Sod/Tazobactam (Sod 3.375 gm/ Sodium Chloride) 100 mls @ 200 mls/ hr IVPB Q8H [facility] Last Admin: 02/07/17 09:57 Dose: 200 mls/hr Ketorolac Tromethamine (Toradol) 15 mg IVP Q6 PRN PRN Reason: Pain, moderate (4-7) Levothyroxine Sodium (Synthroid) 50 mcg PO DAILY@0630 [facility] Last Admin: 02/07/17 06:10 Dose: 50 mcg Losartan Potassium (Cozaar) 25 mg PO DAILY [facility] Last Admin: 02/07/17 09:50 Dose: 25 mg Metoclopramide HCl (Reglan) 5 mg IVP ACHS [facility] Ondansetron HCl (Zofran Inj) 4 mg IVP Q4 PRN PRN Reason: Nausea/Vomiting Last Admin: 02/06/17 17:48 Dose: 4 mg Pantoprazole Sodium (Protonix Inj) 40 mg IVP DAILY [facility] Last Admin: 02/07/17 09:50 Dose: 40 mg Polyethylene Glycol/Electrolytes (Golytely) 4,000 ml PO ONCE ONE Stop: 02/07/17 14:01 Tramadol HCl (Ultram) 50 mg PO TID PRN PRN Reason: Pain, moderate (4-7) - Constitutional Appears: No Acute Distress - Head Exam Head Exam: ATRAUMATIC, NORMAL INSPECTION, NORMOCEPHALIC - Eye Exam Eye Exam: EOMI, Normal appearance, PERRL Pupil Exam: NORMAL ACCOMODATION, PERRL - Respiratory Exam Respiratory Exam: Clear to Ausculation Bilateral, NORMAL BREATHING PATTERN - Cardiovascular Exam Cardiovascular Exam: REGULAR RHYTHM, +S1, +S2. absent: Murmur - GI/Abdominal Exam GI & Abdominal Exam: Soft, Normal Bowel Sounds. absent: Tenderness - Neurological Exam Neurological Exam: Alert, Awake, CN II-XII Intact, Normal Gait, Oriented x3 - Psychiatric Exam Psychiatric exam: Normal Affect, Normal Mood Assessment and Plan (1) Abdominal pain Assessment & Plan: s/p abdominal films on liquid diet repeat films tommorow Status: Acute (2) Nausea Status: Acute (3) Vomiting Status: Acute
--- NOTE | 2017-02-07 13:46 | CP.PCM.PN ---
Subjective - Date & Time of Evaluation Date of Evaluation: 02/07/17 Time of Evaluation: 09:42 - Subjective Subjective: Pt S&E at bedside. Pt reporting persisitant periumbilical abdominal pain is much improved since admission, rating it a 1-2/10 on the severity scale. The pain is located now in LLQ, without radiation. She admits passing gas, but denies bowel movement for two days. She is having difficulty eatiny Objective - Vital Signs/Intake and Output Vital Signs (last 24 hours): Temp Pulse Resp BP Pulse Ox 98.1 F 59 L 18 117/82 96 02/07/17 08:25 02/07/17 08:25 02/07/17 08:25 02/07/17 08:25 02/07/17 08:25 Intake and Output: 02/07/17 02/07/17 06:59 18:59 Intake Total 1280 Balance 1280 - Medications Medications: Current Medications Acetaminophen (Tylenol 325mg Tab) 650 mg PO Q6 PRN PRN Reason: Headache Last Admin: 02/07/17 09:33 Dose: 650 mg Bisacodyl (Dulcolax) 10 mg PO ONCE ONE Stop: 02/07/17 17:01 Docusate Sodium (Colace) 100 mg PO BID [facility] Last Admin: 02/07/17 12:52 Dose: 100 mg Enoxaparin Sodium (Lovenox) 40 mg SC DAILY [facility] Last Admin: 02/07/17 09:51 Dose: 40 mg Folic Acid (Folic Acid) 1 mg PO DAILY [facility] Last Admin: 02/07/17 09:50 Dose: 1 mg Gabapentin (Neurontin) 300 mg PO HS [facility] Last Admin: 02/06/17 21:23 Dose: 300 mg Dextrose/Sodium Chloride (Dextrose 5%/0.9% Ns 1000 Ml) 1,000 mls @ 80 mls/hr IV .[id number] [facility] Last Admin: 02/07/17 09:35 Dose: 80 mls/hr Piperacillin Sod/Tazobactam (Sod 3.375 gm/ Sodium Chloride) 100 mls @ 200 mls/ hr IVPB Q8H [facility] Last Admin: 02/07/17 09:57 Dose: 200 mls/hr Ketorolac Tromethamine (Toradol) 15 mg IVP Q6 PRN PRN Reason: Pain, moderate (4-7) Levothyroxine Sodium (Synthroid) 50 mcg PO DAILY@0630 [facility] Last Admin: 02/07/17 06:10 Dose: 50 mcg Losartan Potassium (Cozaar) 25 mg PO DAILY [facility] Last Admin: 02/07/17 09:50 Dose: 25 mg Metoclopramide HCl (Reglan) 5 mg IVP ACHS [facility] Ondansetron HCl (Zofran Inj) 4 mg IVP Q4 PRN PRN Reason: Nausea/Vomiting Last Admin: 02/06/17 17:48 Dose: 4 mg Pantoprazole Sodium (Protonix Inj) 40 mg IVP DAILY [facility] Last Admin: 02/07/17 09:50 Dose: 40 mg Polyethylene Glycol/Electrolytes (Golytely) 4,000 ml PO ONCE ONE Stop: 02/07/17 14:01 Tramadol HCl (Ultram) 50 mg PO TID PRN PRN Reason: Pain, moderate (4-7) - Constitutional Appears: No Acute Distress - Eye Exam Eye Exam: EOMI, Normal appearance, PERRL Pupil Exam: NORMAL ACCOMODATION, PERRL - Respiratory Exam Respiratory Exam: NORMAL BREATHING PATTERN - Cardiovascular Exam Cardiovascular Exam: REGULAR RHYTHM, +S1, +S2. absent: Murmur - GI/Abdominal Exam GI & Abdominal Exam: Soft, Tenderness, Hypoactive Bowel Sounds - Rectal Exam Rectal Exam: NORMAL INSPECTION Assessment and Plan (1) Abdominal pain Assessment & Plan: colonoscopy tommorow morning Status: Acute (2) Nausea Status: Acute (3) Vomiting Status: Acute
[2017-02-07] MEDS ORDERED: Peg-Electrolyte Oral Soln 4L (Golytely) PO ONE (14:00)
[2017-02-07] MEDS ORDERED: Bisacodyl 5mg EC Tab PO ONE (17:00)
[2017-02-08] MEDS: Piperacillin/Tazobact 3.375 GM in Sodium Chloride 0.9% 100 ML IVPB SCH ×3 (01:05→17:29)
[2017-02-08] MEDS: Levothyroxine 50 MCG TAB PO SCH (06:15)
--- NOTE | 2017-02-08 06:57 | PN ---
DATE: 02/07/2017 LOCATION: 560, bed B. This 61-year-old female seen and examined at rounds without significant clinical changes with intermi ttent periods of abdominal pain. This patient has right upper quadrant and lower quadrant area with mild dyspepsia. The patient has obstructive abdominal x-ray report seen. The entire chart is reviewed, including but not limited to the most recent lab and radiology study re sults, current and the previous medication list, current and the previous medical events, and still h as normal hemoglobin and hematocrit, but low albumin, low total protein, and low calcium with very po or oral intake. Cancer markers were reported to be normal. PHYSICAL EXAMINATION: GENERAL: A 61-year-old female, appears to be awake, alert. VITAL SIGNS: Afebrile with pulse of 60, respiratory rate 20-22, blood pressure of 112/80. HEENT: Showed pale, dry oral mucoid membranes. Nonicteric sclerae. LUNGS: Few scattered crepitations, decreased air entry at bases. HEART: Positive S1 and S2. ABDOMEN: Soft. Bowel sounds are present with mild generalized tenderness, but mainly on the right s shawn of the colon. No mass or organomegaly. EXTREMITIES: Lower extremities edematous changes. NEUROLOGIC: No neurological deficits, sensory or motor. IMPRESSION: 1. Change of bowel movement habit of unclear etiology. The patient has constipation for almost 2 or 3 days, and ileus by CAT scan without evidence of obstruction. 2. Large fecal material in the colon by obstructive series. 3. Right renal mass of unclear etiology. SUGGESTION: 1. Continue current management. 2. The patient is to be scheduled for colonoscopy for evaluation of the lower GI tract at a.m., and neurology consultation to be kept in mind. Les Plummer MD cc: 14 TT: 02/07/2017 12:29:05 Confirmation # [id number] Dictation # [id number] [email or web address]
[2017-02-08] MEDS: Dextrose 5%/0.9% NS 1,000 ML IV SCH ×2 (09:42→21:17)
[2017-02-08] MEDS: Enoxaparin 40 mg Syringe SC SCH (09:50)
[2017-02-08] MEDS ORDERED: Propofol 10 mg/ml Inj (20 ML) ONE (10:36)
--- NOTE | 2017-02-08 22:46 | CP.PCM.PN ---
Subjective - Date & Time of Evaluation Date of Evaluation: 02/08/17 Time of Evaluation: 09:43 - Subjective Subjective: Pt seen and examined, is feeling better, abdominal pain resolved, denies any shortness of breath Objective - Vital Signs/Intake and Output Vital Signs (last 24 hours): Temp Pulse Resp BP Pulse Ox 98.8 F 51 L 21 106/69 95 02/08/17 16:00 02/08/17 16:00 02/08/17 16:00 02/08/17 16:00 02/08/17 16:00 Intake and Output: 02/08/17 02/09/17 18:59 06:59 Intake Total 1150 980 Balance 1150 980 - Medications Medications: Current Medications Acetaminophen (Tylenol 325mg Tab) 650 mg PO Q6 PRN PRN Reason: Headache Last Admin: 02/08/17 06:13 Dose: 650 mg Docusate Sodium (Colace) 100 mg PO BID [facility] Last Admin: 02/08/17 18:25 Dose: 100 mg Enoxaparin Sodium (Lovenox) 40 mg SC DAILY [facility] Last Admin: 02/08/17 09:50 Dose: Not Given Folic Acid (Folic Acid) 1 mg PO DAILY [facility] Last Admin: 02/08/17 09:44 Dose: Not Given Gabapentin (Neurontin) 300 mg PO HS [facility] Last Admin: 02/08/17 21:18 Dose: 300 mg Dextrose/Sodium Chloride (Dextrose 5%/0.9% Ns 1000 Ml) 1,000 mls @ 80 mls/hr IV .[id number] [facility] Last Admin: 02/08/17 21:17 Dose: 80 mls/hr Piperacillin Sod/Tazobactam (Sod 3.375 gm/ Sodium Chloride) 100 mls @ 200 mls/ hr IVPB Q8H [facility] Last Admin: 02/08/17 17:29 Dose: 200 mls/hr Levothyroxine Sodium (Synthroid) 50 mcg PO DAILY@0630 [facility] Last Admin: 02/08/17 06:15 Dose: 50 mcg Losartan Potassium (Cozaar) 25 mg PO DAILY [facility] Last Admin: 02/08/17 09:49 Dose: Not Given Metoclopramide HCl (Reglan) 5 mg IVP ACHS [facility] Last Admin: 02/08/17 21:18 Dose: 5 mg Ondansetron HCl (Zofran Inj) 4 mg IVP Q4 PRN PRN Reason: Nausea/Vomiting Last Admin: 02/06/17 17:48 Dose: 4 mg Pantoprazole Sodium (Protonix Inj) 40 mg IVP DAILY [facility] Last Admin: 02/08/17 09:43 Dose: 40 mg Tramadol HCl (Ultram) 50 mg PO TID PRN PRN Reason: Pain, moderate (4-7) - Constitutional Appears: No Acute Distress - Head Exam Head Exam: ATRAUMATIC, NORMAL INSPECTION, NORMOCEPHALIC - Eye Exam Eye Exam: EOMI, Normal appearance, PERRL Pupil Exam: NORMAL ACCOMODATION, PERRL - Respiratory Exam Respiratory Exam: Clear to Ausculation Bilateral, NORMAL BREATHING PATTERN - Cardiovascular Exam Cardiovascular Exam: REGULAR RHYTHM, +S1, +S2. absent: Murmur - GI/Abdominal Exam GI & Abdominal Exam: Soft, Normal Bowel Sounds. absent: Tenderness Assessment and Plan (1) Abdominal pain Assessment & Plan: etiology unclear abdominal pain resolved Status: Acute (2) Nausea Status: Acute (3) Vomiting Status: Acute
[2017-02-09 00:08] VITALS: RESP 20
[2017-02-09] MEDS: Piperacillin/Tazobact 3.375 GM in Sodium Chloride 0.9% 100 ML IVPB SCH (01:07)
[2017-02-09] MEDS: Levothyroxine 50 MCG TAB PO SCH (06:15)
[2017-02-09 08:16] VITALS: BP 113/74; PULSE 55; TEMP 98.2; O2SAT 95
[2017-02-09] MEDS: Dextrose 5%/0.9% NS 1,000 ML IV SCH (09:18)
[2017-02-09] MEDS: Enoxaparin 40 mg Syringe SC SCH (09:18)
--- NOTE | 2017-02-09 12:33 | PN ---
DATE: 02/09/2017 LOCATION: [address] SUBJECTIVE: This is a 61-year-old female post-colonoscopy yesterday, seen and examined on rounds wit hout significant clinical changes or reported active bleeding with less abdominal pain. Most recent lab and radiology study results, current and previous medication lists, current and the previous medi gloria events were reviewed and the patient is tolerating oral intake well. Case discussed with the sta ff on the floor. PHYSICAL EXAMINATION: GENERAL: A 61-year-old female. VITAL SIGNS: Afebrile with pulse of 58, respiratory rate 20-22, blood pressure of 110/70. HEENT: Showed pale, dry oral mucoid membrane. Nonicteric sclerae. LUNGS: Few scattered crepitations, decreased air entry at bases. HEART: Positive S1 and S2. ABDOMEN: Soft. Bowel sounds are present. No mass or organomegaly. No rebound tenderness or guardi ng. EXTREMITIES: Without significant edema, clubbing or cyanosis. IMPRESSION: 1. Diverticulosis with possible diverticulitis. 2. Right renal mass of unclear etiology. SUGGESTION: 1. Continue current management. 2. Urology reevaluation. Les Plummer MD cc: 14 TT: 02/09/2017 12:32:48 Confirmation # [id number] Dictation # [id number] leticia
[2017-02-09 14:13] LABS: BASO % 0.6 % (0.0-2.0); EOS # 0.1 K/uL (0.0-0.7); EOS % 2.1 % (0.0-4.0); HEMATOCRIT 38.9 % (34.0-47.0); LYMPH # 1.7 K/uL (1.0-4.3); LYMPH % 47.4 % (20.0-40.0); MEAN CELL VOLUME 89.9 fL (81.0-99.0); MEAN CORPUSCULAR HEMOGLOBIN 29.7 pg (27.0-31.0); MEAN CORPUSCULAR HGB CONC 33.1 g/dL (33.0-37.0); MEAN PLATELET VOLUME 9.5 fL (7.2-11.7); MONO # 0.2 K/uL (0.0-0.8); MONO % 6.8 % (0.0-10.0); WHITE BLOOD COUNT 3.6 K/uL (4.8-10.8)
[2017-02-09 14:54] LABS: CHLORIDE 106 mmol/L (98-107); SODIUM 139 mmol/L (132-148)
[2017-02-09 14:57] LABS: BLOOD UREA NITROGEN 7 mg/dL (7-17); CARBON DIOXIDE 22 mmol/L (22-30); GFR AFRICAN-AMERICAN > 60; GLUCOSE,RANDOM 90 mg/dL (65-105)
[2017-02-09 14:58] LABS: CALCIUM 7.9 mg/dl (8.6-10.4)
--- NOTE | 2017-02-09 16:42 | CP.PCM.PN ---
Subjective - Date & Time of Evaluation Date of Evaluation: 02/09/17 Time of Evaluation: 11:00 - Subjective Subjective: Pt seen an d examined today, abdominal pain is much improved without radiation, mild pain to the RLQ , denies any N/V/D , tolerating diet without difficulty, s/p colonoscopy ( see full report for details) a febrile Objective - Vital Signs/Intake and Output Vital Signs (last 24 hours): Temp Pulse Resp BP Pulse Ox 98.2 F 55 L 20 113/74 95 02/09/17 07:00 02/09/17 07:00 02/09/17 07:00 02/09/17 07:00 02/09/17 07:00 Intake and Output: 02/09/17 02/09/17 06:59 18:59 Intake Total 1620 Balance 1620 - Medications Medications: Current Medications Acetaminophen (Tylenol 325mg Tab) 650 mg PO Q6 PRN PRN Reason: Headache Last Admin: 02/08/17 06:13 Dose: 650 mg Docusate Sodium (Colace) 100 mg PO BID [facility] Last Admin: 02/09/17 09:17 Dose: 100 mg Enoxaparin Sodium (Lovenox) 40 mg SC DAILY [facility] Last Admin: 02/09/17 09:18 Dose: 40 mg Folic Acid (Folic Acid) 1 mg PO DAILY [facility] Last Admin: 02/09/17 09:17 Dose: 1 mg Gabapentin (Neurontin) 300 mg PO HS [facility] Last Admin: 02/08/17 21:18 Dose: 300 mg Dextrose/Sodium Chloride (Dextrose 5%/0.9% Ns 1000 Ml) 1,000 mls @ 80 mls/hr IV .[id number] [facility] Last Admin: 02/09/17 09:18 Dose: 80 mls/hr Piperacillin Sod/Tazobactam (Sod 3.375 gm/ Sodium Chloride) 100 mls @ 200 mls/ hr IVPB Q8H [facility] Last Admin: 02/09/17 01:07 Dose: 200 mls/hr Levothyroxine Sodium (Synthroid) 50 mcg PO DAILY@0630 [facility] Last Admin: 02/09/17 06:15 Dose: 50 mcg Losartan Potassium (Cozaar) 25 mg PO DAILY [facility] Last Admin: 02/09/17 09:17 Dose: 25 mg Metoclopramide HCl (Reglan) 5 mg IVP ACHS [facility] Last Admin: 02/09/17 13:51 Dose: 5 mg Ondansetron HCl (Zofran Inj) 4 mg IVP Q4 PRN PRN Reason: Nausea/Vomiting Last Admin: 02/06/17 17:48 Dose: 4 mg Pantoprazole Sodium (Protonix Inj) 40 mg IVP DAILY [facility] Last Admin: 02/09/17 09:18 Dose: 40 mg Tramadol HCl (Ultram) 50 mg PO TID PRN PRN Reason: Pain, moderate (4-7) - Labs Labs: 02/09/17 13:57 02/09/17 13:57 Assessment and Plan - Assessment and Plan (Free Text) Assessment: A/P 61 yr old female admitted for Abdominal pain , N/V abdominal pain improved s/p colonoscopy - negative ( see full report for details) Abdominal x- ray-Nonspecific bowel gas pattern with moderate fecal retention in the colon. Relative paucity of small bowel gas. Hida scan- negative D/W Dr. Matias, stable for discharge home today with po flagyl an dcipro and f/ u with Dr. Matias office in 1 week Discharge plan discussed with patient , who understands and agrees with plan Pt instructed to returns to ED if symptoms returns or any other concerning symptoms
--- NOTE | 2017-02-09 22:53 | CP.PCM.DIS ---
Provider - Provider Date of Admission: 02/06/17 19:36 Attending physician: Canelo Matias MD Time Spent in preparation of Discharge (in minutes): 30 Diagnosis - Discharge Diagnosis (1) Abdominal pain Status: Acute (2) Nausea Status: Acute (3) Vomiting Status: Acute Hospital Course - Lab Results Lab Results: Most Recent Lab Values WBC 3.6 K/uL (4.8-10.8) L 02/09/17 13:57 RBC 4.33 Mil/uL (3.80-5.20) 02/09/17 13:57 Hgb 12.9 g/dL (11.0-16.0) 02/09/17 13:57 Hct 38.9 % (34.0-47.0) 02/09/17 13:57 MCV 89.9 fL (81.0-99.0) 02/09/17 13:57 MCH 29.7 pg (27.0-31.0) 02/09/17 13:57 MCHC 33.1 g/dL (33.0-37.0) 02/09/17 13:57 RDW 13.0 % (11.5-14.5) 02/09/17 13:57 Plt Count 184 K/uL (130-400) 02/09/17 13:57 MPV 9.5 fL (7.2-11.7) 02/09/17 13:57 Neut % (Auto) 43.1 % (50.0-75.0) L 02/09/17 13:57 Lymph % (Auto) 47.4 % (20.0-40.0) H 02/09/17 13:57 Early % (Auto) 6.8 % (0.0-10.0) 02/09/17 13:57 Eos % (Auto) 2.1 % (0.0-4.0) 02/09/17 13:57 Baso % (Auto) 0.6 % (0.0-2.0) 02/09/17 13:57 Neut # 1.6 K/uL (1.8-7.0) L 02/09/17 13:57 Lymph # 1.7 K/uL (1.0-4.3) 02/09/17 13:57 Early # 0.2 K/uL (0.0-0.8) 02/09/17 13:57 Eos # 0.1 K/uL (0.0-0.7) 02/09/17 13:57 Baso # 0.0 K/uL (0.0-0.2) 02/09/17 13:57 Sodium 139 mmol/L (132-148) 02/09/17 13:57 Potassium 4.0 mmol/L (3.6-5.2) 02/09/17 13:57 Chloride 106 mmol/L (98-107) 02/09/17 13:57 Carbon Dioxide 22 mmol/L (22-30) 02/09/17 13:57 Anion Gap 15 (10-20) 02/09/17 13:57 BUN 7 mg/dL (7-17) 02/09/17 13:57 Creatinine 0.8 MG/DL (0.7-1.2) 02/09/17 13:57 Est GFR ( Amer) > 60 02/09/17 13:57 Est GFR (Non-Af Amer) > 60 02/09/17 13:57 Random Glucose 90 mg/dL (65-105) 02/09/17 13:57 Calcium 7.9 mg/dl (8.6-10.4) L 02/09/17 13:57 Total Bilirubin 0.5 mg/dL (0.2-1.3) 02/06/17 07:38 AST 26 U/L (14-36) 02/06/17 07:38 ALT 26 U/L (9-52) 02/06/17 07:38 Alkaline Phosphatase 45 U/L (38-126) 02/06/17 07:38 Total Protein 5.8 g/dL (6.3-8.3) L 02/06/17 07:38 Albumin 3.1 g/dL (3.5-5.0) L D 02/06/17 07:38 Globulin 2.7 gm/dL (2.2-3.9) 02/06/17 07:38 Albumin/Globulin Ratio 1.1 (1.0-2.1) 02/06/17 07:38 Lipase 39 U/L (23-300) 02/04/17 23:52 Carcinoembryonic Ag 1.3 ng/mL (0-3.0) 02/05/17 13:52 CA 19-9 Antigen 5.4 U/mL (0-37) 02/05/17 13:52 CA 125 Antigen < 5.5 U/mL (0-35) 02/05/17 13:52 Urine Color Yellow (YELLOW) 02/04/17 23:55 Urine Clarity Hazy (Clear) 02/04/17 23:55 Urine pH 5.0 (5.0-8.0) 02/04/17 23:55 Ur Specific [place] 1.024 (1.003-1.030) 02/04/17 23:55 Urine Protein Negative mg/dL (NEGATIVE) 02/04/17 23:55 Urine Glucose (UA) Normal mg/dL (Normal) 02/04/17 23:55 Urine Ketones 1+ mg/dL (NEGATIVE) H 02/04/17 23:55 Urine Blood Negative (NEGATIVE) 02/04/17 23:55 Urine Nitrate Negative (NEGATIVE) 02/04/17 23:55 Urine Bilirubin Negative (NEGATIVE) 02/04/17 23:55 Urine Urobilinogen Normal mg/dL (0.2-1.0) 02/04/17 23:55 Ur Leukocyte Esterase Neg Claudine/uL (Negative) 02/04/17 23:55 Urine WBC (Auto) 4 /hpf (0-5) 02/04/17 23:55 Urine RBC (Auto) 3 /hpf (0-3) 02/04/17 23:55 Ur Squamous Epith Cells 1 /hpf (0-5) 02/04/17 23:55 Urine Bacteria Many (<OCC) H 02/04/17 23:55 - Hospital Course Hospital Course: A/P 61 yr old female admitted for Abdominal pain , N/V abdominal pain improved s/p colonoscopy - negative ( see full report for details) Abdominal x- ray-Nonspecific bowel gas pattern with moderate fecal retention in the colon. Relative paucity of small bowel gas. Hida scan- negative Pt is stable for discharge home today with po flagyl an dcipro and f/u with me in office in 1 week Discharge plan discussed with patient , who understands and agrees with plan Pt instructed to returns to ED if symptoms returns or any other concerning symptoms Discharge Exam - Head Exam Head Exam: ATRAUMATIC, NORMAL INSPECTION, NORMOCEPHALIC - Eye Exam Eye Exam: EOMI, Normal appearance - ENT Exam ENT Exam: Mucous Membranes Moist - Respiratory Exam Respiratory Exam: Clear to PA & Lateral, NORMAL BREATHING PATTERN - Cardiovascular Exam Cardiovascular Exam: REGULAR RHYTHM, +S1, +S2 - GI/Abdominal Exam GI & Abdominal Exam: Normal Bowel Sounds - Rectal Exam Rectal Exam: Deferred - Neurological Exam Neurological exam: Alert, CN II-XII Intact, Normal Gait, Oriented x3, Reflexes Normal - Psychiatric Exam Psychiatric exam: Normal Affect, Normal Mood Discharge Plan - Discharge Medications Prescriptions: Dicyclomine [Bentyl] 10 mg PO TID #10 cap Ciprofloxacin [Cipro] 500 mg PO BID #10 tab Metronidazole [Flagyl] 500 mg PO Q8 #15 tablet - Follow Up Plan Condition: STABLE Disposition: HOME/ ROUTINE Instructions: Ciprofloxacin (By mouth), Dicyclomine (By mouth), Metronidazole ( By mouth), Biliary Colic (GEN), High Fiber Diet (DC) Additional Instructions: f/u with Dr. Matias office in 1 week Continue medication as per Med. Rec. fiber diet Referrals: Canelo Matias MD [Staff Provider] -
== END 2017-02-09 16:20 | disposition home or self-care (01) | DRG 814 ==
LOC: C.ER 23:19 → C.9E 02-05 02:20 → C.5T 02-05 08:17 → OBSVTOIN 02-06 19:36 → C.3T 02-07 13:29
PROVIDERS: ADMIT Internal Medicine; ATTEND Internal Medicine
PROC: 0DBM8ZX Excision of Descending Colon, Via Natural or Artificial Opening Endoscopic, Diagnostic (ICD-10-PCS; 2017-02-08)
PROC: 0DBM8ZX Excision of Descending Colon, Via Natural or Artificial Opening Endoscopic, Diagnostic (ICD-10-PCS; principal; 2017-02-08 10:50)
DX: R10.31 Right lower quadrant pain (principal); I12.9 Hypertensive chronic kidney disease with stage 1 through stage 4 chronic kidney disease, or unspecified chronic kidney disease; N28.89 Other specified disorders of kidney and ureter; R11.2 Nausea with vomiting, unspecified; M19.90 Unspecified osteoarthritis, unspecified site; K57.92 Diverticulitis of intestine, part unspecified, without perforation or abscess without bleeding; H26.9 Unspecified cataract; K57.90 Diverticulosis of intestine, part unspecified, without perforation or abscess without bleeding; E03.9 Hypothyroidism, unspecified; E78.5 Hyperlipidemia, unspecified; Z87.891 Personal history of nicotine dependence